=== PATIENT | male | born 1995 | race Caucasian/White ===

== ENCOUNTER 2021-08-18 22:36 | Emergency (ER) | payer SELFPAY ==
[~2021-08-18 22:36] MED LIST: CLEOCIN HCL300 MG PO; CYCLOBENZAPRINE10 MG PO; ERYTHROMYCIN O3.5 GM OD; FLEXERIL 10 MG10 MG PO; IBUPROFEN600 MG PO
[2021-08-19] MEDS ORDERED: IBUPROFEN600 MG PO (01:23)
== END 2021-08-19 01:34 | disposition home or self-care (01) ==
LOC: ER1 22:36
DX: S90.32XA Contusion of left foot, initial encounter (principal); W22.8XXA Striking against or struck by other objects, initial encounter
CPT/HCPCS: 73630; 99283

== ENCOUNTER 2021-11-29 14:58 | Emergency (ER) | payer SELFPAY ==
[2021-11-29] MEDS ORDERED: IBUPROFEN800 MG PO (17:40)
[2021-11-29] MEDS ORDERED: CYCLOBENZAPRINE10 MG PO (17:40)
== END 2021-11-29 17:52 | disposition home or self-care (01) ==
LOC: ER1 14:58
DX: S39.012A Strain of muscle, fascia and tendon of lower back, initial encounter (principal); X50.9XXA Other and unspecified overexertion or strenuous movements or postures, initial encounter; Y92.009 Unspecified place in unspecified non-institutional (private) residence as the place of occurrence of the external cause
CPT/HCPCS: 72100; 96372; 99283; J1885